=== PATIENT | female | born 1995 | race Caucasian/White ===

== ENCOUNTER 2017-05-17 11:57 | Emergency (ER) | payer OTHER ==
[2017-05-17 12:03] VITALS: BP 125/68; PULSE 69; TEMP 98.2; BMI 29.2
--- NOTE | 2017-05-17 12:45 | PDOC ---
History of Present Illness - General Chief Complaint: ,Possible Stated Complaint: TEST Time Seen by Provider: 05/17/17 12:19 History Source: Patient Exam Limitations: No Limitations - History of Present Illness Initial Comments: 05/17/17 13:01 21-year-old female presents to the ED to check for . Patient states had her last menstrual cycle on the of last month and states is a daily and was concerned since she did have unprotected sex once in the last month. Patient has no abdominal pain and no other complaints at this time. Timing/Duration: unsure Associated Symptoms: reports: denies symptoms Past History - Travel Traveled outside of the country in the last 30 days: No - Past Medical History Allergies/Adverse Reactions: Allergies Allergy/AdvReac Type Severity Reaction Status Date / Time No Known Allergies Allergy Verified 05/17/17 11:58 Home Medications: Ambulatory Orders NK [No Known Home Medication] 05/17/17 Other medical history: DENIES. - Immunization History Immunization Up to Date: Yes - Suicide/Smoking/Psychosocial Hx Smoking Status: No Smoking History: Never smoked Have you smoked in the past 12 months: No Number of Cigarettes Smoked Daily: 0 Cigars Per Day: 0 Hx Alcohol Use: No Drug/Substance Use Hx: No Substance Use Type: None Patient Lives Alone: No Lives with/in: parents Review of Systems - Review of Systems Able to Perform ROS?: Yes Constitutional: No: Symptoms Reported HEENTM: No: Symptoms Reported Respiratory: No: Symptoms reported Cardiac (ROS): No: Symptoms Reported ABD/GI: No: Symptoms Reported : No: Symptoms Reported Musculoskeletal: No: Symptoms Reported Neurological: No: Symptoms reported *Physical Exam - Vital Signs Last Vital Signs Temp Pulse Resp BP Pulse Ox 98.2 F 69 18 125/68 98 05/17/17 11:58 05/17/17 11:58 05/17/17 11:58 05/17/17 11:58 05/17/17 11:58 - Physical Exam General Appearance: Yes: Nourished, Appropriately Dressed. No: Apparent Distress Female Pelvic Exam: negative: vaginal bleeding Gastrointestinal/Abdominal: positive: Soft. negative: Tenderness Integumentary: positive: Normal Color, Warm, Moist Neurologic: positive: Motor Strength 5/5 (ambulatory) Medical Decision Making - Medical Decision Making 05/17/17 13:00 Patient here to check for since she is a day late although she has no complaints. Patient states did not do a test at home. Upreg ordered 05/17/17 13:07 Laboratory Tests 05/17/17 12:30 Urine HCG, Qual Negative *DC/Admit/Observation/Transfer Diagnosis at time of Disposition: test negative - Discharge Dispostion Disposition: HOME Condition at time of disposition: Good - Referrals Referrals: Jayson Larry [Primary Care Provider] - - Patient Instructions Printed Discharge Instructions: Myths and Truths About the Menstrual Cycle Additional Instructions: At this time your test was negative for but do recommend that if you do not have a menstrual cycle in the next few weeks to follow-up with your job analyst
== END 2017-05-17 13:02 | disposition home or self-care (01) ==
LOC: JERFT 11:57 → SUPCPDRO 11:57 → JERFT 13:02
DX: Z32.02 Encounter for pregnancy test, result negative (principal)
CPT/HCPCS: 84703; 99281-25

== ENCOUNTER 2020-09-08 10:15 | Emergency (ER) | payer OTHER ==
[2020-09-08 10:32] VITALS: BP 117/68; PULSE 72; TEMP 99; BMI 26.5
[2020-09-08] MEDS ORDERED: KETOROLAC TROMETHAMINE 30 MG/1 ML VIAL IM ONE (10:49)
[2020-09-08] MEDS ORDERED: METHOCARBAMOL 500 MG TABLET PO ONE (10:49)
[2020-09-08] MEDS ORDERED: METHOCARBAMOL 500 MG TABLET ONE (11:10)
[2020-09-08] MEDS ORDERED: KETOROLAC TROMETHAMINE 30 MG/1 ML VIAL ONE (11:10)
== END 2020-09-08 12:04 | disposition home or self-care (01) ==
LOC: JERFT 10:15 → JER 10:15 → JERFT 12:04
PROC: 3E0233Z Introduction of Anti-inflammatory into Muscle, Percutaneous Approach (ICD-10-PCS; principal; 2020-09-08)
DX: S30.0XXA Contusion of lower back and pelvis, initial encounter (principal)
CPT/HCPCS: 72220-TC-FY; 99284-25

== ENCOUNTER 2024-04-24 08:22 | Emergency (ER) | payer OTHER ==
[2024-04-24 08:40] VITALS: BMI 31.7
[2024-04-24] MEDS ORDERED: ACETAMINOPHEN 500 MG TABLET (FP) ONE (09:44)
[2024-04-24] MEDS: ACETAMINOPHEN 500 MG TABLET (FP) PO ONE (09:49)
[2024-04-24 10:27] LABS: EPI CELLS 14 /uL (0-25.1); HYALINE CASTS 1 /uL (0-3.1); PH,URINE 6.5 (5.0-8.0); URINE APPEARANCE CLEAR; URINE BACTERIA 7228 /uL (0-1359); URINE BILIRUBIN NEGATIVE (NEGATIVE); URINE COLOR YELLOW; URINE GLUCOSE (UA) NEGATIVE (NEGATIVE); URINE KETONE NEGATIVE (NEGATIVE); URINE LEUK ESTERASE 1+ (NEGATIVE); URINE NITRITE NEGATIVE (NEGATIVE); URINE PROTEIN NEGATIVE (NEGATIVE); URINE RBC 4 /uL (0-23.9); URINE UROBILINOGEN 0.2 mg/dL (0.2-1.0); URINE WBC 119 /uL (0-25.8)
[2024-04-24] MEDS ORDERED: NITROFURANTOIN MACROCRYSTAL 50 MG CAPSULE (FP) PO SCH (10:30)
[2024-04-24] MEDS ORDERED: CEPHALEXIN MONOHYDRATE 500 MG CAPSULE (UD) ONE (10:33)
[2024-04-24] MEDS: CEPHALEXIN MONOHYDRATE 500 MG CAPSULE (UD) PO ONE (10:36)
[2024-04-24 11:43] VITALS: BP 122/78; PULSE 85; RESP 20; TEMP 98.1
== END 2024-04-24 11:52 | disposition home or self-care (01) ==
LOC: JER 08:22
DX: O26.892 Other specified pregnancy related conditions, second trimester (principal); R10.32 Left lower quadrant pain; O23.42 Unspecified infection of urinary tract in pregnancy, second trimester; Z3A.16 16 weeks gestation of pregnancy
CPT/HCPCS: 81003; 87086; 87186; 99283-25

== ENCOUNTER 2024-09-24 08:00 | Inpatient (IN) | payer OTHER ==
[2024-09-24] MEDS: LACTATED RINGERS SOLUTION 500 ML IV ONE (08:30)
[2024-09-24 09:12] VITALS: BMI 34.5
[2024-09-24] MEDS ORDERED: IBUPROFEN 600 MG TABLET (FP) PO ONE (09:36)
[2024-09-24] MEDS ORDERED: OXYTOCIN 30 UNITS in 0.9% NS 30 UNIT/500 ML INFUS.BAG IVPB ONE ×2 (09:37→16:08)
[2024-09-24] MEDS ORDERED: TERBUTALINE SULFATE 1 MG/1 ML VIAL SQ ONE (10:03)
[2024-09-24] MEDS: TERBUTALINE SULFATE 1 MG/1 ML VIAL SQ ONE (10:08)
[2024-09-24] MEDS: LACTATED RINGERS SOLUTION 1,000 ML/1,000 ML INFUS.BAG IV SCH (10:45)
[2024-09-24] MEDS: MISOPROSTOL 25 MCG TABLET (COMPOUNDED BY PHARMACY) BUC ONE (12:10)
[2024-09-24] MEDS: PENICILLIN G POTASSIUM 5,000,000 UNIT/250 ML BAG IVPB ONE (13:00)
[2024-09-24] MEDS ORDERED: PENICILLIN G POTASSIUM 5,000,000 UNIT/250 ML BAG IVPB ONE (13:12)
[2024-09-24] MEDS: OXYTOCIN 30 UNITS in 0.9% NS 30 UNIT/500 ML INFUS.BAG IVPB SCH (16:15)
[2024-09-24] MEDS: PENICILLIN G POTASSIUM 2,500,000 UNIT in SODIUM CHLORIDE 100 ML IVPB SCH (17:25)
[2024-09-24] MEDS ORDERED: FENTANYL/BUPIVACAINE/NS/PF - PCEA - 50 ML DISP.SYRIN EP ONE (20:10)
[2024-09-24] MEDS ORDERED: NALOXONE HCL 0.4 MG/ML VIAL IVPUSH PRN (20:40)
[2024-09-24] MEDS: FENTANYL/BUPIVACAINE/NS/PF - PCEA - 50 ML DISP.SYRIN EP SCH (20:40)
[2024-09-25] MEDS ORDERED: FENTANYL/BUPIVACAINE/NS/PF - PCEA - 50 ML DISP.SYRIN EP ONE ×3 (01:08→10:42)
[2024-09-25] MEDS: DEXTROSE 5%-LACTATED RINGERS 200 ML IV ONE (06:20)
[2024-09-25] MEDS ORDERED: OXYTOCIN 20 UNITS in 0.9% NS 20 UNIT/1,000 ML INFUS.BAG IV ONE (12:35)
[2024-09-25] MEDS ORDERED: BENZOCAINE 28 GM HEMORRHOIDAL OINTMENT TP PRN (13:33)
[2024-09-25] MEDS ORDERED: METHYLERGONOVINE MALEATE 0.2 MG/1 ML AMP IM PRN (13:33)
[2024-09-25] MEDS ORDERED: BENZOCAINE 20% 57 GM BOTTLE TP PRN (13:33)
[2024-09-25] MEDS ORDERED: BISACODYL 10 MG SUPP.RECT RC PRN (13:33)
[2024-09-25] MEDS ORDERED: WITCH HAZEL 50% (TUCKS) 40 PAD/JAR PAD TP PRN (13:33)
[2024-09-25] MEDS: OXYTOCIN 20 UNITS in 0.9% NS 20 UNIT/1,000 ML INFUS.BAG IV SCH (14:00)
[2024-09-25 14:39] VITALS: RESP 18
[2024-09-25] MEDS: FERROUS SO4 325 MG TABLET (FP) PO SCH (18:25)
[2024-09-25] MEDS: IBUPROFEN 600 MG TABLET (FP) PO PRN (18:42)
[2024-09-26 08:18] LABS: BASO % 0.2 % (0-2.0); EOS % 0.4 % (0-4.5); HEMATOCRIT 32.1 % (32.4-45.2); HEMOGLOBIN 10.9 GM/dL (10.7-15.3); MCH 27.8 pg (25.7-33.7); MCHC 33.9 g/dl (32.0-36.0); MEAN CELL VOLUME 82.1 fl (80-96); MEAN PLT VOLUME 9.1 fl (7.5-11.1); MONO % 4.8 % (3.8-10.2); NEUT % 86.6 % (42.8-82.8); PLATELET COUNT 179 10^3/uL (134-434); RDW 16.2 % (11.6-15.6); WHITE BLOOD COUNT 14.8 K/mm3 (4.0-10.0)
[2024-09-26] MEDS: ACETAMINOPHEN 325 MG TABLET (FP) PO PRN (08:32)
[2024-09-26] MEDS ORDERED: SENNOSIDES/DOCUSATE COMBO (SENNA PLUS) TABLET (UD) PO PRN (22:00)
[2024-09-27 22:33] VITALS: PULSE 64
[2024-09-28 11:02] VITALS: BP 100/62; TEMP 98
== END 2024-09-28 11:55 | disposition home or self-care (01) | DRG 560 ==
LOC: JLDR 08:08 → J3W 09-25 15:32
PROVIDERS: ADMIT Obstetrics & Gynecology; ATTEND Obstetrics & Gynecology
PROC: 10E0XZZ Delivery of Products of Conception, External Approach (ICD-10-PCS; principal; 2024-09-25)
DX: O24.429 Gestational diabetes mellitus in childbirth, unspecified control (principal); O99.824 Streptococcus B carrier state complicating childbirth; O77.0 Labor and delivery complicated by meconium in amniotic fluid; O32.1XX0 Maternal care for breech presentation, not applicable or unspecified; O69.81X0 Labor and delivery complicated by cord around neck, without compression, not applicable or unspecified; Z3A.38 38 weeks gestation of pregnancy; Z37.0 Single live birth
CPT/HCPCS: 36415; 59409; 82962; 85025; 86850; 86900; 86901

== ENCOUNTER 2025-01-29 22:48 | Emergency (ER) | payer OTHER ==
[2025-01-29 22:55] VITALS: RESP 18; TEMP 98.9; BMI 32.5
[2025-01-29 23:39] LABS: ABSOLUTE IMMATURE GRANULOCYTES 0.03 x10^3/uL (0.0-0.031); BASOPHILS # 0.04 x10^3/uL (0.01-0.08); EOSINOPHIL % 1.2 % (0.7-5.8); EOSINOPHILS # 0.12 x10^3/uL (0.04-0.36); MCHC 32.3 g/dl (32.2-35.5); MEAN CELL VOLUME 84.4 fl (79.4-94.8); MEAN PLT VOLUME 9.8 fl (9.4-12.3); MONOCYTE # 0.69 x10^3/uL (0.24-0.86); MONOCYTE % 6.9 % (4.7-12.5); RDW 13.4 % (12.1-16.5)
[2025-01-29 23:48] LABS: INR 1.02 (0.83-1.09); PROTHROMBIN TIME (PATIENT) 11.1 SEC (9.7-13.0)
[2025-01-29 23:51] LABS: ACTIVATED PTT 28.2 SECONDS (25.2-36.5)
[2025-01-30 00:11] LABS: CO2 23.0 mmol/L (21-32); GLUCOSE,RANDOM 117.0 mg/dL (74-106)
[2025-01-30 00:14] LABS: CREATININE 0.6 mg/dL (0.55-1.3); SGOT/AST 21.0 U/L (15-37); SGPT/ALT 44.0 U/L (13-61); TOT PROT 7.0 g/dl (6.4-8.2)
[2025-01-30 00:15] LABS: ALK PHOS 89.0 U/L (45-117)
[2025-01-30 00:42] VITALS: BP 107/55; PULSE 79
[2025-01-30 03:41] LABS: EPI CELLS >36 /uL (0-25.1); HYALINE CASTS 0 /uL (0-3.1); URINE APPEARANCE CLEAR; URINE BACTERIA 1090 /uL (0-1359); URINE BILIRUBIN NEGATIVE (NEGATIVE); URINE COLOR YELLOW; URINE GLUCOSE (UA) NEGATIVE (NEGATIVE); URINE KETONE NEGATIVE (NEGATIVE); URINE LEUK ESTERASE 1+ (NEGATIVE); URINE NITRITE NEGATIVE (NEGATIVE); URINE PROTEIN NEGATIVE (NEGATIVE); URINE RBC 16 /uL (0-23.9); URINE UROBILINOGEN 0.2 mg/dL (0.2-1.0); URINE WBC 94 /uL (0-25.8)
[2025-01-30] MEDS ORDERED: CEPHALEXIN MONOHYDRATE 500 MG CAPSULE (UD) ONE (03:54)
[2025-01-30] MEDS: CEPHALEXIN MONOHYDRATE 500 MG CAPSULE (UD) PO ONE (03:59)
== END 2025-01-30 04:01 | disposition home or self-care (01) ==
LOC: JER 22:48
DX: O23.41 Unspecified infection of urinary tract in pregnancy, first trimester (principal); O20.9 Hemorrhage in early pregnancy, unspecified; Z3A.00 Weeks of gestation of pregnancy not specified
CPT/HCPCS: 36415; 80053; 81003; 84702; 85025; 85610; 85730; 86850; 86900; 86901; 99283-25